=== PATIENT | male | born 1965 | race Caucasian/White ===

== ENCOUNTER → 2020-05-09 06:44 | Outpatient (CLI) | payer BC, SELFPAY ==
[2019-06-14 16:36] VITALS: BMI 31.4
--- NOTE | 2020-05-09 06:48 | CT_ITS ---
STUDY: CT MAXILLOFACIAL SINUSES REASON FOR EXAM: Male, 55 years old. FOREIGN BODY R MAXILLARY SINUS RADIATION DOSAGE (If Supplied By Facility): CTDIvol = ( 33.06 ) mGy, DLP = ( 759.47 ) mGycm TECHNIQUE: The patient was scanned in a multi detector CT scanner. High resolution axial imaging was performed without the administration of intravenous contrast material. Sagittal and coronal images were reconstructed. Individualized dose optimization techniques were used for this CT. COMPARISON: None. FINDINGS: FRONTAL SINUSES: Normal aeration, without mucosal inflammatory disease. ETHMOIDAL SINUSES: Mild degree of mucosal thickening of the ethmoid sinuses. MAXILLARY SINUSES: 1.8 cm x 0.36 cm linear metallic density in the anterior aspect of the right maxillary sinus. This this is located along the inferior to mid anterior aspect of the right maxillary sinus. Mild degree of soft tissue changes are seen adjacent to this. There is also evidence of a 1 cm x 0.9 cm lucency surrounding the posterior molar of the right maxilla. This extends into the base of the left maxillary sinus with mucosal thickening of the sinus. SPHENOIDAL SINUSES: Normal aeration, without mucosal inflammatory disease. There is patency of the bilateral maxillary infundibuli with normal uncinate processes, ethmoid bullae, and hiatus semilunaris. Normal bilateral middle turbinates. Normal bilateral inferior turbinates. Normal midline nasal septum. There is patency of the bilateral nasal airways. The visualized osseous structures are normal. The visualized bilateral orbital contents are normal. CT/Sinus/Facial Bone IMPRESSION: 1.8 cm x 0.36 cm linear metallic density in the mid inferior anterior aspect of the right maxillary sinus. This most likely represents a foreign body. Lucency along the base of the posterior molar in the left maxillary. There is overlying partial opacification of the left maxillary sinus. Minimal mucosal thickening of the ethmoid sinuses. Electronically Signed: Jerry Dumont MD at 8:43 EST , Service support ,
== END ==
PROVIDERS: PCP Family Medicine; Referring Provider Otolaryngology; Visit Provider Otolaryngology
DX: T17.0XXA Foreign body in nasal sinus, initial encounter (principal)
CPT/HCPCS: 70486

== ENCOUNTER 2020-06-12 05:47 | Day surgery (SDC) | payer BC, SELFPAY ==
[2019-06-14 16:36] VITALS: BMI 31.4
--- NOTE | 2020-06-09 09:53 | EKG12_ITS ---
Test Reason : PREOP Blood Pressure : / mmHG Vent. Rate : 068 BPM Atrial Rate : 068 BPM P-R Int : 130 ms QRS Dur : 084 ms QT Int : 366 ms P-R-T Axes : 054 071 041 degrees QTc Int : 389 ms Normal sinus rhythm Normal ECG Confirmed by JUAN ROSADO, CHAD ([id number]), fan mail editor JOSÉ MIGUEL JEFFERS ([id number]) on 06/14/2020 8:00:16 AM Referred By: Ihsan Garcia Confirmed By:CHAD MARTINEZ MD
[2020-06-09 10:22] LABS: Hematocrit 46.6 % (40-54); Hemoglobin 15.8 g/dL (13.0-16.5); Mean Corp Hgb Conc 33.9 g/dL (32-36); Mean Corpuscular Hgb 32.4 pg (27.0-32.0); Mean Corpuscular Volume 95.7 fL (80-94); Mean Platelet Vol. 9.6 fl (6.2-12.0); Platelet Count 220 K/mm3 (150-450); RBC Distribution Width CV 12.1 % (11.6-14.6); RBC Distribution Width SD 42.6 fl (35.1-43.9); Red Blood Count 4.87 M/mm3 (4.6-6.2); White Blood Count 5.8 K/mm3 (4.4-11.0)
[2020-06-09 10:49] LABS: Anion Gap 6 (5-15); BUN 15 mg/dL (7-18); BUN/Creat Ratio 15.2 RATIO (10-20); Calcium,Total 8.9 mg/dL (8.5-10.1); Chloride 108 mmol/L (98-107); Creatinine, Serum 0.98 mg/dL (0.70-1.30); EST Glomerular Filtration Rate 84 mL/min (>60); Est Glom Filt Rate - Afr Amer 101 mL/min (>60); Glucose 85 mg/dL (74-106); Potassium 3.9 mmol/L (3.5-5.1); Sodium Level 141 mmol/L (136-145)
--- NOTE | 2020-06-12 | FORE_PTH ---
PATIENT: ARELIS LEA LOC: [facility] [place] U#:[id number] AGE/SX: 55/M ROOM: RE06/12/[address]: Dr. Ihsan Garcia MD : [id number] BED: DIS: 06/12/2020 SPEC #: [id number] RECD: 06/12/20 11:20 STATUS: FABIAN KOLBY #: [id number] ANTOINETTE: 06/12/20 00:[address]: Ihsan Garcia DEPT: SURGICAL PATHOLOGY RECD BY: Wing Mccarthy ENTERED: 06/12/20 11:20 SP TYPE: FOREIGN B GUILLERMO DR: Dr. Jakub Maria MD Tissues: FOREIGN BODY Procedures: Decalcification bone/plaque Surgery Specimen Level IV HEADER OPERATION: Maxillary antrostomy with foreign body removal PRE-OP DIAGNOSIS: Foreign body in nasal sinus TISSUE SUBMITTED: Right nasal contents MICROSCOPIC DIAGNOSIS Right nasal contents, maxillary antrostomy with foreign body removal: Fragments of respiratory mucosa with chronic inflammation and bone. SJ:mannie 06/15/2020 MICROSCOPIC DESCRIPTION Slides are reviewed. GROSS DESCRIPTION Received in fixative is one container labeled with the patient's name and designated right nasal contents. The specimen consists of multiple irregular fragments of adames-pink soft tissue mixed with fragments of bone that in aggregate measure 2.5 x 2 x 0.1 cm. The specimen is totally submitted in one cassette after decalcification. / KAMRAN:mannie 06/12/20 TC:3 CPT: 35496, 52636
[2020-06-12 06:23] VITALS: BP 119/81; PULSE 52; RESP 16; TEMP 36.7; O2SAT 95; BMI 30.9
[2020-06-12] MEDS: Lactated Ringers 1,000 ML 100 ML IV ×2 (06:40→09:52)
--- NOTE | 2020-06-12 07:32 | DCINST_ITS ---
You will use the following diet at home:: Regular Discharge Activity: - - No noseblowing Additional Activity Instructions:: Start saline irrigation on 06/13/20. Irrigate 4x/day. Allergies/Adverse Reactions: Allergies No Known Allergies Allergy (Verified 06/12/20 06:20) Medications to take at Discharge Pravastatin [Pravachol] 20 mg PO DAILY 08/17/13 Omeprazole 40 mg PO QHS 06/05/20 Sertraline HCl [Zoloft] 50 mg PO QHS 06/05/20 Orders to be completed after discharge: 12 Lead EKG [[facility]] Time Frame: 06/09/20, Facility: [facility], Location: Cardiovascular Services Primary Care Physician: Jakub Maria MD [Primary Care Provider] - Test Results: Test results from this visit will be discussed in further detail at your follow- up appointment, if applicable.
[2020-06-12] MEDS: Lidocaine 1% /Epi 1:100 (20ml) 20 ML Vial (07:50)
[2020-06-12 09:41] VITALS: BP 119/81; BP 139/84; PULSE 65; RESP 16; TEMP 36.3; O2SAT 100
[2020-06-12 09:50] VITALS: BP 119/81; BP 130/89; PULSE 55; RESP 16; O2SAT 98
--- NOTE | 2020-06-12 09:55 | PCM.OPRPT ---
Report of Operation Date of Procedure: 06/12/20 Pre-Operative Diagnosis: Foreign body right maxillary sinus Post-Operative Diagnosis: same Surgery/Procedure Performed:: Right maxillary antrostomy. Greer-Keyla with foreign body removal. Use of navigation. Description of Surgical Findings:: Two metallic foreign bodies Type of Anesthesia:: General Anesthesiologist: Cliff Fernandez Specimen's removed: right sinus contents (tissue) Estimated Blood Loss (mL): minimal Description of Procedure: The patient was taken to the operating room on 06/12/2020. He was placed in the supine position on the operating room table. He was given sufficient general endotracheal anesthesia. The navigation system was applied to the patient's face and registered. The head of bed was elevated 30 degrees. Next, the patient was draped sterilely. The navigation was checked for accuracy. 0, 30, and 70 degree rigid nasal endoscopes were used throughout the entire procedure. The right middle turbinate was medialized with a Marienthal elevator. I then injected 1% lidocaine with epinephrine 1:100,000 into the uncinate process and right middle turbinate. After sufficient vasoconstriction, a ball-tipped sinus seeker inserted the patient's maxillary sinus. The maxillary antrostomy was created with a backbiter. The uncinate process was taken down using a sinus shaver. I then used navigation to evaluate the location of the nasolacrimal duct. I continued to use the backbiter to create a large antrostomy anteriorly. I then inserted the 70 degree rigid nasal endoscope. I could barely see the right maxillary sinus foreign body with the scope. I tried to reach it with multiple instruments including the curved suction as well as the giraffe, and a malleable but I was unable to reach the foreign body. I then injected the gingivolabial sulcus overlying the right maxillary sinus with 1% lidocaine with epinephrine. I obtained hemostasis in the nose with Afrin pledgets. Next, I made an incision in the gingivolabial sulcus approximately 3.5 cm in length with a 15 blade. I then incised the periosteum on the right maxilla. The periosteum was elevated using a Marienthal elevator. The infraorbital nerve was identified and preserved. I was able to identify the tooth roots with navigation and kept the Greer keyla opening superior to the roots. Next, I placed a hole in the bone overlying the foreign body with a hammer and chisel. The opening was enlarged with Kerrison rongeurs. Hemostasis was achieved using Afrin pledgets. I then inserted a 30 degree rigid nasal endoscope into the hole and was able to visualize the metal foreign body at the inferior and anterior most portion of the right maxillary sinus. I used curved suction to move the foreign bodies posteriorly. I then grasped each foreign body (there were 2) with Leidy forceps and these were delivered through the Greer keyla opening. There appeared to be some flecks of conde in the sinus. I removed all of this with suction from the right maxillary sinus. I then irrigated the right maxillary sinus with saline. The irrigant was suctioned from the maxillary sinus. I then suctioned excess irrigant from the nasopharynx. The sinus was reinspected with the endoscope and there were no further foreign bodies. I then closed the gingivolabial sulcus incision with interrupted 4-0 chromic. The pledgets were removed from the nose. Absolute hemostasis was achieved in the nasal cavity with some sparing suction cautery and Lili powder. The procedure was then terminated the patient was then awoken and brought to recovery room in stable condition blood loss minimal, replacement none. Sponge, needle, and instrument count were correct at the end of the procedure.
[2020-06-12 10:00] VITALS: BP 119/81; BP 129/73; PULSE 57; RESP 16; O2SAT 97
[2020-06-12 10:15] VITALS: BP 116/76; BP 119/81; PULSE 59; RESP 16; TEMP 36.6; O2SAT 96
[2020-06-12] MEDS: HYDROcodone Bitartrate/Apap 5/325 Tablet PO (10:37)
[2020-06-12 11:16] VITALS: BP 119/81; BP 146/90; PULSE 54; RESP 16; TEMP 36.8; O2SAT 95
== END 2020-06-12 11:22 | disposition home or self-care (01) ==
LOC: SDC 05:48 → AC 05:48
PROVIDERS: PCP Family Medicine; Referring Provider Otolaryngology; Visit Provider Otolaryngology
PROC: (CPT 31267; principal; 2020-06-12 07:00)
DX: T17.0XXA Foreign body in nasal sinus, initial encounter (principal); X58.XXXA Exposure to other specified factors, initial encounter; Y93.9 Activity, unspecified; Y92.9 Unspecified place or not applicable; Y99.9 Unspecified external cause status; K21.9 Gastro-esophageal reflux disease without esophagitis; E78.00 Pure hypercholesterolemia, unspecified; F41.9 Anxiety disorder, unspecified; Z20.822 Contact with and (suspected) exposure to COVID-19; Z79.899 Other long term (current) drug therapy; Z87.891 Personal history of nicotine dependence
CPT/HCPCS: 31267; 61782; 36415; 80048; 85027; 87426; 88300; 88305; 88311; 93005; C9803; J7120

== ENCOUNTER → 2020-06-28 | Outpatient (CLI) | payer BC, SELFPAY ==
[2020-06-12 06:23] VITALS: BMI 30.9
== END | disposition home or self-care (01) ==
LOC: LABSPEC 16:46
PROVIDERS: PCP Family Medicine; Referring Provider Otolaryngology; Visit Provider Otolaryngology
DX: R05 Cough (principal); Z03.818 Encounter for observation for suspected exposure to other biological agents ruled out; Z11.59 Encounter for screening for other viral diseases
CPT/HCPCS: 87635; C9803; U0002